=== PATIENT | female | born 1940 | race Caucasian/White ===

== ENCOUNTER 2019-03-26 15:47 | Outpatient (CLI) | payer MEDICARE ==
[~2019-03-26] VITALS: Ht 152.4 cm; Wt 68.0 kg
[~2019-03-26 15:47] MED LIST: ATOR80TA PO; DIAZ2TAB PO; DIAZ2TAB3 PO; DIPH-423 PO; DOCU100C40 PO; ESTR0.5T PO; LEVO50TA67 PO; LISI-232 PO; METO50TA7 PO; NAPR250T4 PO; PRAM0.253 PO; RANI-648 PO
[2019-03-26 16:15] LABS: TOTAL HEMOGLOBIN 12.3 G/dl (12.0-16.0)
[2019-03-26] MEDS ORDERED: albuterol 2.5 MG/3 ML nebule NEB ONE (16:35)
== END 2019-03-26 23:59 | disposition home or self-care (01) ==
LOC: RT 15:47
PROVIDERS: ATTEND Internal Medicine
DX: R94.2 Abnormal results of pulmonary function studies (principal); R06.02 Shortness of breath; Z79.899 Other long term (current) drug therapy
CPT/HCPCS: 85018; 94060; 94727; 94729; 94760